=== PATIENT | male | born 1945 | race Caucasian/White ===

== ENCOUNTER 2022-07-27 01:07 | Emergency (ER) | payer MEDICARE ==
[2022-07-27 01:15] VITALS: BP 135/82
--- NOTE | 2022-07-27 01:49 | ED Physician Documentation ---
PD HPI HEAD INJURY - Stated complaint Stated Complaint: FALL/FACE INJURY - Chief complaint Chief Complaint: Trauma Hd/Nk - History obtained from History obtained from: Patient - History of Present Illness Mechanism of head injury: Fell Timing - onset: How many days ago - Additional information Additional information: HPI from patient. Patient fell out of bed at approximately 9:15 PM. Thinks he was asleep at the time but was awoken due to falling out of bed, struck floor face-first. He has mild nasal pain but chief complaint is persistent epistaxis since the injury. He says the bleeding appears to be from both nares. Denies WILEY, denies LOC. Review of Systems Constitutional: reports: Reviewed and negative Eyes: reports: Reviewed and negative Ears: reports: Reviewed and negative Nose: reports: Reviewed and negative Throat: reports: Reviewed and negative Cardiac: reports: Reviewed and negative Respiratory: reports: Reviewed and negative GI: reports: Reviewed and negative : reports: Reviewed and negative Skin: reports: Reviewed and negative Musculoskeletal: reports: Reviewed and negative Neurologic: reports: Reviewed and negative Psychiatric: reports: Reviewed and negative Endocrine: reports: Reviewed and negative Immunocompromised: reports: Reviewed and negative PD PAST MEDICAL HISTORY - Past Medical History Past Medical History: No - Past Surgical History Past Surgical History: No - Present Medications Home Medications: Ambulatory Orders Medication Instructions Recorded Confirmed Levothyroxine [Synthroid] 88 mcg PO DAILY 07/27/22 07/27/22 - Allergies Allergies/Adverse Reactions: Allergies Allergy/AdvReac Type Severity Reaction Status Date / Time Sulfa (Sulfonamide AdvReac Unknown Verified 07/27/22 01:15 Antibiotics) - Social History Does the pt smoke?: No Smoking Status: Never smoker Does the pt drink ETOH?: No Does the pt have substance abuse?: No - Immunizations Immunizations are current?: Yes PD ED PE NORMAL - Vitals Vital signs reviewed: Yes - General General: Alert and oriented X 3, No acute distress - HEENT HEENT: PERRL - Cardiac Cardiac: RRR, No murmur - Respiratory Respiratory: Clear bilaterally - Extremities Extremities: No deformity - Neuro Neuro: Alert and oriented X 3 - Psych Psych: Normal mood, Normal affect PD ED PE EXPANDED - HEENT HEENT: Other (trace dried blood left nare, trace fresh blood right nare. no septal hematoma. no active bleeding. Mild nasal cartilage tenderness but no bony tenderness) HEENT Visual: 1 - laceration (0.5 cm length linear laceration mucosal aspect of right septum within 2 mm of verge (entrance) of nasal vestibule) Results - Vitals Vitals: Oxygen O2 Source Room air PD Medical Decision Making - ED course Complexity details: considered differential, d/w patient ED course: laceration right nare, mucous membrane of nasal septum. Dermabond is used to reapproximate wound edges. There is no active bleeding from the laceration nor any other visualized site on exam of both nares. No gross deformity nor bony tenderness to indicate acute imaging studies. Return precautions d/w patient. Departure - Departure Disposition: 01 Home, Self Care Clinical Impression: Epistaxis due to trauma Condition: Good Instructions: ED Nosebleed Comments: There is no active bleeding on the nasal exam tonight. However, as we discussed, you have a laceration on the mucous membrane just inside the right nostril. Even though it was not actively bleeding at the time of the exam, this is very likely the source of the bleeding. A layer of tissue adhesive ("glue") was placed to close the wound. The glue will eventually fall out just like a scab would fall off of the wound. Discharge Date/Time: 07/27/22 02:28
== END 2022-07-27 02:28 | disposition home or self-care (01) ==
LOC: ED 01:07
DX: S09.90XA Unspecified injury of head, initial encounter (principal); W06.XXXA Fall from bed, initial encounter; R04.0 Epistaxis
CPT/HCPCS: 12011; 99281